=== PATIENT | male | born 1980 | race Caucasian/White ===

== ENCOUNTER 2018-03-03 10:50 | Emergency (ER) | payer BC ==
[2018-03-03 10:57] VITALS: RESP 18; TEMP 97.8
[2018-03-03] MEDS ORDERED: KETOROLAC 30 MG/ML 1 ML VIAL IM STA (11:19)
[2018-03-03] MEDS ORDERED: HYDROmorphone 1 MG/ML 1 ML SYRINGE IM STA (11:19)
[2018-03-03] MEDS ORDERED: ONDANSETRON ODT 4 MG TAB PO STA (11:19)
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
[2018-03-03 11:57] LABS: Appearance,Urine Clear (Clear); Bilirubin,Urine Negative (Negative); Blood,Urine Negative (Negative); Color,Urine Yellow; Glucose,Urine (UA) Negative (Negative); Ketones,Urine Negative (Negative); Leukocyte Esterase,Urine Negative (Negative); Nitrite,Urine Negative (Negative); Protein,Urine Negative (Negative); Specific Gravity,Urine 1.012 (1.001-1.035); Urobilinogen,Urine <2.0 mg/dL (<2.0)
--- NOTE | 2018-03-03 12:15 | XR ---
EXAMINATION TYPE: XR shoulder complete RT DATE OF EXAM: 03/03/2018 CLINICAL HISTORY: Right-sided pain after injury. TECHNIQUE: Three views of the right shoulder are obtained. COMPARISON: None. FINDINGS: There is no acute fracture/dislocation evident in the right shoulder. Moderate narrowing r ight acromioclavicular joint is present. Right glenohumeral joint is maintained. See same day right rib x-ray report for complete details of right-sided ribs. IMPRESSION: There is no acute fracture or dislocation in the right shoulder.
--- NOTE | 2018-03-03 12:18 | XR ---
EXAMINATION TYPE: XR ribs RT w pa chest xray DATE OF EXAM: 03/03/2018 COMPARISON: Prior x-ray March 29, 2010. HISTORY: Chest and right-sided rib pain after fall injury. TECHNIQUE: Single frontal view of chest as well as a frontal and oblique images of right-sided ribs a re obtained FINDINGS: Lungs are grossly clear without pleural effusion or pneumothorax seen bilaterally. Excellen t size appears within normal limits. Osseous structures are intact. There is acute nondisplaced fracture involving lateral right third rib and acute minimally displaced fractures involving lateral right fourth through sixth ribs. There is acute minimally displaced verti sweta fracture involving anterolateral right seventh rib. Overlying soft tissue is unremarkable. IMPRESSION: 1. No acute cardiopulmonary process. 2. Acute nondisplaced to minimally displaced fractures involving right third through seventh ribs.
[2018-03-03 13:19] VITALS: BP 134/88; PULSE 69
== END 2018-03-03 13:22 | disposition home or self-care (01) ==
LOC: EC 10:50
DX: S22.41XA Multiple fractures of ribs, right side, initial encounter for closed fracture (principal); L40.9 Psoriasis, unspecified; F17.200 Nicotine dependence, unspecified, uncomplicated; Z79.899 Other long term (current) drug therapy; V86.59XA Driver of other special all-terrain or other off-road motor vehicle injured in nontraffic accident, initial encounter; Y92.410 Unspecified street and highway as the place of occurrence of the external cause
CPT/HCPCS: 81003; 71101; 73030; 99284; 96372 ×2; J1885; J1170

== ENCOUNTER 2021-11-03 22:14 | Emergency (ER) | payer BC ==
[2021-11-03 22:57] VITALS: BP 168/90; PULSE 81; RESP 20; TEMP 97.2
--- NOTE | 2021-11-03 23:17 | XR ---
EXAMINATION TYPE: XR hand complete LT DATE OF EXAM: 11/03/2021 COMPARISON: NONE HISTORY: Pain TECHNIQUE: 3 views FINDINGS: Metacarpals are intact. I see no dislocation. There is longitudinal fracture of the middle phalanx of the ring finger with no displacement. The carpal bones are intact. Radiocarpal joint appea rs normal. IMPRESSION: Hairline acute longitudinal fracture of the middle phalanx of the ring finger left hand.
[2021-11-04] MEDS ORDERED: HYDROcodone/APAP 5-325MG 1 EACH TAB PO STA (00:21)
[2021-11-04] MEDS ORDERED: LIDOCAINE 1% INJ 10MG/ML (20 ML MDV) SQ STA (00:21)
[2021-11-04] MEDS ORDERED: ceFAZolin 1,000 MG VIAL (IM USE) IM STA (00:21)
[2021-11-04] MEDS ORDERED: BUPIVACAINE (PF) 0.5% 30 ML VIAL SQ STA (00:42)
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
[2021-11-04] MEDS ORDERED: DIPH,PERTUS(ACELL)TETVAC-LF 0.5 ML VIAL IM ONE (00:56)
[2021-11-04] MEDS ORDERED: BACITRACIN ZINC 500 UNIT/GM OINT 28.4 GM TUBE TOPICAL STA (01:43)
[2021-11-04] MEDS ORDERED: ACET/COD 300 MG/30 MG STARTER PACK 6 TAB BTL PO STA (01:47)
== END 2021-11-04 02:35 | disposition home or self-care (01) ==
LOC: EC 22:14
DX: S67.22XA Crushing injury of left hand, initial encounter (principal); S67.191A Crushing injury of left index finger, initial encounter; S67.193A Crushing injury of left middle finger, initial encounter; F17.200 Nicotine dependence, unspecified, uncomplicated; Z23 Encounter for immunization; X58.XXXA Exposure to other specified factors, initial encounter
CPT/HCPCS: 99283; 96372; 90471; 73130; 90715; 12002; J0690; J2001